=== PATIENT | male | born 1985 | race Two or more races ===

== ENCOUNTER 2024-01-27 16:59 | Emergency (ER) | payer OTHER ==
[2024-01-27 16:59] VITALS: BP 121/79; PULSE 79; RESP 20; O2SAT 98
== END 2024-01-27 20:57 | disposition left against medical advice (07) ==
LOC: ER 17:04
DX: M79.641 Pain in right hand (principal); M79.89 Other specified soft tissue disorders; V89.2XXA Person injured in unspecified motor-vehicle accident, traffic, initial encounter; Y93.89 Activity, other specified; Y92.89 Other specified places as the place of occurrence of the external cause; Y99.8 Other external cause status; Z53.1 Procedure and treatment not carried out because of patient's decision for reasons of belief and group pressure